=== PATIENT | female | born 1985 | race Caucasian/White ===

== ENCOUNTER 2021-10-18 11:04 | Emergency (ER) | payer OTHER, SELFPAY ==
[2021-10-18 11:10] VITALS: BP 122/65; PULSE 56; RESP 20; TEMP 37.6; O2SAT 100
--- NOTE | 2021-10-18 11:23 | ED.EAR ---
HPI - Ear Problem General Chief complaint: Ear Stated complaint: sore throat and ear pain Time Seen by Provider: 10/18/21 11:15 Source: patient Mode of arrival: ambulatory Limitations: no limitations History of Present Illness HPI Narrative: Ms. Quintana is a 35-year-old female patient presenting to the clinic today with complaints of right ear pain and sore throat 5 days . She reports that her throat was hurting for 5 days and the ear pain developed over the last 24 to 48 hours. She reports that she is having a lot of pressure in the right ear and it hurts to swallow and chew. She denies any fever or chills. She does have somewhat of nasal congestion MD Complaint: ear pain Location: right ear Related Data Home Medications Medication Instructions Recorded Confirmed alprazolam 0.25 mg tablet 0.25 tablet PO DAILY 10/18/21 10/18/21 Allergies Allergy/AdvReac Type Severity Reaction Status Date / Time No Known Allergies Allergy Unverified 09/10/18 08:25 Review of Systems Review of Systems: Pertinent positives per HPI. Patient denies any fever, chills, rash, headache, visual changes, dizziness, cough, shortness of breath, chest pain, palpitations, nausea, vomiting, diarrhea, constipation, abdominal pain, or any urinary issues. PMFSH Social History Social History Smoking status: Former smoker Second hand tobacco smoke exposure: No Smoking end date: 05/24/11 Alcohol intake: current Comments At the time of my signature, I reviewed and agree with the nursing past medical, surgical, social, and family history. There is no relevant family history pertinent to the patient complaint. Exam Narrative: General: Well-developed, well nourished, in no apparent distress Head: Normocephalic, atraumatic Eyes: Pupils equally round and reactive to light bilaterally, EOM intact, sclera and conjunctive clear, no discharge, lids normal Ears: Left TMs intact and clear, right TM intact, bulging, opaque, ear canals clear, no drainage, grossly hearing normal. Nose: Nares patent, no discharge, no inflammation, no sinus tenderness. Mouth: Oropharynx without lesions or masses, good dentition, MMM. Oropharynx red without tonsillar enlargement Neck: Supple, trachea midline, no enlargement of anterior or posterior cervical nodes, no thyroid masses or goiter palpable. Cardio: Regular rate and rhythm, s1 and s2 normal, no murmur appreciated. Resp: Clear to auscultation bilaterally anteriorly and posteriorly, no rhonchi, rales, wheezing or rubs Course Course Emergency Course: Portions of this record may have been created with voice recognition software. Level of Care: Express Care Visit Vital Signs Vital signs: Vital Signs Temperature 37.6 C 10/18/21 11:10 Pulse Rate 56 L 10/18/21 11:10 Respiratory Rate 20 10/18/21 11:10 Blood Pressure 122/65 10/18/21 11:10 Pulse Oximetry 100 10/18/21 11:10 Oxygen Delivery Room Air 10/18/21 11:10 Temperature 37.6 C 10/18/21 11:10 Pulse Rate 56 L 10/18/21 11:10 Respiratory Rate 20 10/18/21 11:10 Blood Pressure 122/65 10/18/21 11:10 Pulse Oximetry 100 10/18/21 11:10 Oxygen Delivery Room Air 10/18/21 11:10 Vital signs reviewed Medical Decision Making MDM Narrative Medical decision making narrative: At the time of visit patient is resting comfortably on the exam table. Strep testing was completed and was negative in the clinic. I suspect the patient has eustachian tube dysfunction of the right ear as well as viral pharyngitis. Supportive measures were discussed with the patient she voiced understanding of discharge instructions. Differential Diagnosis Differential Diagnosis: Strep pharyngitis, upper respiratory infection, otitis media, otitis externa, otalgia, eustachian tube dysfunction, viral infection, COVID, and influenza Vital Signs Vital Signs: Vital Signs Temperature 37.6 C
== END 2021-10-18 11:36 | disposition home or self-care (01) ==
PROVIDERS: Emergency Provider Nurse Practitioner Family; PCP Family Medicine
DX: J02.9 Acute pharyngitis, unspecified (principal); H69.81 Other specified disorders of Eustachian tube, right ear; F41.9 Anxiety disorder, unspecified
CPT/HCPCS: 87081; 87880; 99203; G0463

== ENCOUNTER 2022-01-28 08:03 | Emergency (ER) | payer OTHER, SELFPAY ==
[2022-01-28 08:08] VITALS: BP 124/73; PULSE 58; RESP 20; TEMP 36.9; O2SAT 100
--- NOTE | 2022-01-28 08:09 | ED.URI ---
HPI - URI/Sore Throat General Chief Complaint: Upper Respiratory Infection Stated Complaint: painful swallowing Time Seen by Provider: 01/28/22 08:18 Source: patient and RN notes reviewed Mode of arrival: ambulatory Limitations: no limitations History of Present Illness HPI Narrative: 36-year-old female presents with concern for painful swallowing. She reports symptoms started 2 days ago. She reports painful glands in her neck. She reports she had trouble sleeping due to the pain so she took ibuprofen which helped her sleep. She denies postnasal drainage, nasal congestion, cough, headache, nausea, vomiting, diarrhea. She denies shortness of breath, fever, body aches, chills, sweats. MD elicited complaint: sore throat Related Data Home Medications Medication Instructions Recorded Confirmed alprazolam 0.25 mg tablet 0.25 tablet PO DAILY 10/18/21 01/28/22 Allergies Allergy/AdvReac Type Severity Reaction Status Date / Time No Known Allergies Allergy Verified 01/28/22 08:18 Review of Systems Review of Systems: CONSTITUTIONAL: Denies malaise, chills, sweats, or fever. EYES: Denies visual changes, redness, or discharge. ENT: Denies rhinorrhea, congestion, sinus pain, otalgia. Reports sore throat and painful swallowing CARDIOVASCULAR: Denies chest pain, palpitations, or edema. RESPIRATORY: Denies cough. Denies dyspnea. GASTROINTESTINAL: Denies abdominal pain, nausea, vomiting, diarrhea SKIN: Denies rash or itching. MUSCULOSKELETAL: Denies myalgia. NEUROLOGIC: Denies headache. All systems reviewed & are unremarkable except as noted in HPI and below [facility] Social History Social History Smoking status: Former smoker Second hand tobacco smoke exposure: No Smoking end date: 05/24/11 Alcohol intake: current Comments At time of signature, agree with nursing past medical, surgical, social and family history. There is no relevant family history pertinent to the presenting complaint Exam Narrative: GENERAL: Nontoxic appearing and in no acute distress. HEAD: Normocephalic EYES: PERRLA, conjunctivae clear ENT: Nares clear. Mucous membranes moist. TM pearly junior with sharp light reflex bilaterally; no tragal tenderness. Oropharynx mildly erythematous without lesions. Tonsils not enlarged and without exudate, no drooling, no hoarseness, no trismus, uvula midline. NECK: Supple. No lymphadenopathy CHEST: Clear to auscultation, breath sounds equal. No wheezing, rhonchi, rales, or stridor. No respiratory distress, speaks in full sentences. HEART: Regular rate and rhythm. No murmur heard. SKIN: Warm, dry, no rash. NEURO: Alert and oriented x3. PSYCH: Normal mood and affect Course Course Emergency Course: Patient is aware of diagnosis, understands and agrees to treatment plan. Anticipatory guidance given. Patient agrees to follow-up as directed and is aware of reasons to seek care at the emergency department. Portions of this record may have been created with voice recognition software Level of Care: Express Care Visit Vital Signs Vital signs: Reviewed. MDM - URI/Sore Throat MDM Narrative Medical decision making narrative: Differential diagnosis considered: Faria virus, strep pharyngitis, allergic rhinitis, upper respiratory tract infection, sinusitis, rhinosinusitis, nasopharyngitis. viral pharyngitis, otitis media, otitis externa, pneumonia, bronchitis, viral cough syndrome, viral syndrome, and influenza. Exam findings show no acute concerns or changes; patient is non-toxic appearing and is in no distress. Patient is appropriate for outpatient treatment and follow-up. Lab Data Attestation: I reviewed the patient's lab results. Critical Care Time Critical Care Time Critical Care Time: No Discharge Plan Discharge Clinical Impression: Pharyngitis Patient Disposition: Home, Self-Care Condition: Stable Instructions: Antibiotic Form Additi
== END 2022-01-28 09:00 | disposition home or self-care (01) ==
PROVIDERS: Emergency Provider Nurse Practitioner; PCP Family Medicine
DX: J02.9 Acute pharyngitis, unspecified (principal); Z20.822 Contact with and (suspected) exposure to COVID-19; Z87.891 Personal history of nicotine dependence
CPT/HCPCS: 87081; 87147; 87426; 87804; 99213; C9803; G0463